=== PATIENT | female | born 1935 | race Caucasian/White ===

== ENCOUNTER 2018-05-25 09:57 | Inpatient (IN) ==
--- NOTE | 2018-05-25 10:47 | XR ---
EXAM DATE: 05/25/2018 10:45 AM EDT AGE/SEX: 82 years / Female INDICATIONS: . Chest pain and short of breath. CLINICAL DATA: This is the patient's initial encounter. Patient reports that signs and symptoms have been present for 2 days and indicates a pain score of 3/10. MEDICAL/SURGICAL HISTORY: None. None. COMPARISON: No prior exams available for comparison. FINDINGS: PA and lateral views of the chest demonstrate small bilateral pleural effusions the right is larger t guerrier the left. There is associated atelectasis. No acute infiltrate. Heart is mildly enlarged. A degen erative thoracic spine. Metallic foreign bodies overlying the right humeral head. CONCLUSION: Cardiomegaly with small bilateral pleural effusions. Electronically signed by: Jan Her MD 05/25/2018 10:46 AM EDT
--- NOTE | 2018-05-25 11:45 | ED ---
HPI General Chief complaint: Chest Pain Stated complaint: Chest pain/SOB Time Seen by Provider: 05/25/18 11:22 History of Present Illness HPI narrative: 82-year-old female with no significant past medical history. She presents for evaluation of chest pain dyspnea. She reports that for 2 weeks she has had substernal sharp chest pain which is worse with deep inspiration. There is associated dyspnea. She denies any nausea, vomiting, abdominal pain, fevers or chills, diaphoresis, lower extremity edema, palpitations, dizziness, lightheadedness. She has never experiencing these symptoms before. She reports a dry cough for the past 3 days. Denies recent travel recent surgery. Denies any history of coronary artery disease. Her primary care physician is Dr. Zelaya. No other complaints. Related Data Home Medications Medication Instructions Recorded Confirmed No Known Home Medications 05/25/18 05/25/18 Allergies Allergy/AdvReac Type Severity Reaction Status Date / Time No Known Allergies Allergy Unverified 05/25/18 11:20 Review of Systems Except as stated in HPI: all other systems reviewed are negative [facility] Medical History Medical History FH: cholecystectomy (Acute) H/O: hysterectomy (Acute) History of intestine removal (Acute) Metal foreign body in upper extremity (Acute) Surgical History Surgical History Hx of appendectomy (Acute) Social History Social History Substance History: No History of Abuse Second Hand Smoke Exposure: No Smoking Status: Never smoker How Often Do You Have a Drink Containing Alcohol: Never Recent Travel in [facility] within the Last 8 Weeks: No Recent Out of Country Travel within the Last 8 Weeks: No Immunization History Tetanus Immunization: >5 Years Hx Influenza Vaccine This Season: No Exam Narrative Exam Narrative: GENERAL: Pleasant well-developed well-nourished female no acute distress. Her heart rate is noted be 117 during examination. SKIN: Warm and dry. HEAD: Atraumatic. Normocephalic. EYES: Pupils equal and round. No scleral icterus. No injection or drainage. ENT: No nasal bleeding or discharge. Mucous membranes pink and moist. NECK: Trachea midline. No JVD. CARDIOVASCULAR: Irregular rate and rhythm. No murmur appreciated. RESPIRATORY: No accessory muscle use. Clear to auscultation. Breath sounds equal bilaterally. GASTROINTESTINAL: Abdomen soft, non-tender, nondistended. Hepatic and splenic margins not palpable. MUSCULOSKELETAL: No obvious deformities. No clubbing. No cyanosis. No edema. NEUROLOGICAL: Awake and alert. No obvious cranial nerve deficits. Motor grossly within normal limits. Normal speech. Course Initial Documented Vital Signs Temperature 98.4 F 05/25/18 10:13 Pulse Rate 118 H 05/25/18 10:13 Respiratory Rate 22 05/25/18 10:13 Blood Pressure 150/69 H 05/25/18 10:13 Pulse Oximetry 95 05/25/18 10:13 Last Documented Vital Signs Temperature 98.4 F 05/25/18 10:13 Pulse Rate 90 05/25/18 13:40 Respiratory Rate 18 05/25/18 12:15 Blood Pressure 96/60 L 05/25/18 13:40 Pulse Oximetry 96 05/25/18 12:15 Medical Decision Making MDM Narrative Medical decision making narrative: The patient was placed on ECG monitoring pulse oximetry. 12 EKG was obtained revealing atrial fibrillation with RVR, rate of 114. She has no history of atrial fibrillation. Lab work, chest x-ray has been ordered. The patient was given a full dose aspirin. Diltiazem and back order, IV metoprolol administered. Upon reexamination her pulse is improved, rate is currently 89. Lab work has been reviewed. CT pulmonary angiogram is negative for PE, there are bilateral pleural effusions as well as a small pericardial effusion. The patient has been comfortable during her ED course. The patient will be admitted for further treatment. Differential Diagnosis Differential Diagnosis: Acute coronary syndrome, pneumothorax, hemothorax, pulmonary embolism, pericarditis, myocarditis, aortic dissection Lab Data Result diagrams: 05/25/18 11:45 05/25/18 11:45 Lab Results 05/25/18 05/25/18 05/25/18 Range/Units 11:45 11:45 11:45 WBC 14.2 H (4.0-11.0) th/mm3 RBC 4.37 (4.00-5.30) mil/mm3 Hgb 13.0 (11.6-15.3) gm/dL Hct 38.5 (35.0-46.0) % MCV 88.2 (80.0-100.0) fL MCH 29.8 (27.0-34.0) pg MCHC 33.8 (32.0-36.0) % RDW 13.6 (11.6-17.2) % Plt Count 371 (150-450) th/mm3 MPV 7.8 (7.0-11.0) fL Neut % (Auto) 77.6 H (16.0-70.0) % Lymph % (Auto) 10.6 (9.0-44.0) % [place] % (Auto) 8.8 H (0.0-8.0) % Eos % (Auto) 2.5 (0.0-4.0) % Baso % (Auto) 0.5 (0.0-2.0) % Neut # (Auto) 11.0 H (1.8-7.7) th/mm3 Lymph # (Auto) 1.5 (1.0-4.8) th/mm3 [place] # (Auto) 1.3 H (0.0-0.9) th/mm3 Eos # (Auto) 0.4 (0.0-0.4) th/mm3 Baso # (Auto) 0.1 (0.0-0.2) th/mm3 WBC Differential . Differential Comment Auto diff final PT 11.4 (9.8-11.6) sec INR 1.1 Ratio APTT 28.7 (24.3-30.1) sec Sodium 138 (136-145) meq/L Potassium 3.5 (3.5-5.1) meq/L Chloride 101 (98-107) meq/L Carbon Dioxide 28.4 (21.0-32.0) meq/L Anion Gap 9 (5-15) meq/L BUN 13 (7-18) mg/dL Creatinine 0.71 (0.50-1.00) mg/dL Estimated GFR 79 L (>89) mL/min Random Glucose 107 H (74-106) mg/dL Calcium 8.6 (8.5-10.1) mg/dL Magnesium (1.5-2.5) mg/dL Total Creatine Kinase 106 (26-192) U/L CK-MB (CK-2) 2.0 (0.5-3.6) ng/mL Troponin I Less than 0.02 L (0.02-0.05) ng/mL B-Natriuretic Peptide (0-100) pg/mL TSH (0.358-3.740) uIU/mL 05/25/18 05/25/18 Range/Units 11:45 11:45 WBC (4.0-11.0) th/mm3 RBC (4.00-5.30) mil/mm3 Hgb (11.6-15.3) gm/dL Hct (35.0-46.0) % MCV (80.0-100.0) fL MCH (27.0-34.0) pg MCHC (32.0-36.0) % RDW (11.6-17.2) % Plt Count (150-450) th/mm3 MPV (7.0-11.0) fL Neut % (Auto) (16.0-70.0) % Lymph % (Auto) (9.0-44.0) % [place] % (Auto) (0.0-8.0) % Eos % (Auto) (0.0-4.0) % Baso % (Auto) (0.0-2.0) % Neut # (Auto) (1.8-7.7) th/mm3 Lymph # (Auto) (1.0-4.8) th/mm3 [place] # (Auto) (0.0-0.9) th/mm3 Eos # (Auto) (0.0-0.4) th/mm3 Baso # (Auto) (0.0-0.2) th/mm3 WBC Differential Differential Comment PT (9.8-11.6) sec INR Ratio APTT (24.3-30.1) sec Sodium (136-145) meq/L Potassium (3.5-5.1) meq/L Chloride (98-107) meq/L Carbon Dioxide (21.0-32.0) meq/L Anion Gap (5-15) meq/L BUN (7-18) mg/dL Creatinine (0.50-1.00) mg/dL Estimated GFR (>89) mL/min Random Glucose (74-106) mg/dL Calcium (8.5-10.1) mg/dL Magnesium 2.1 (1.5-2.5) mg/dL Total Creatine Kinase (26-192) U/L CK-MB (CK-2) (0.5-3.6) ng/mL Troponin I (0.02-0.05) ng/mL B-Natriuretic Peptide 390 H (0-100) pg/mL TSH 2.540 (0.358-3.740) uIU/mL Imaging Data Radiologist's impression: Chest X-Ray 05/25/18 10:17 CONCLUSION: Cardiomegaly with small bilateral pleural effusions. Chest CTA 05/25/18 12:26 CONCLUSION: 1. Negative for pulmonary embolus. 2. Bilateral moderate size pleural effusions with compressive atelectasis. Small pericardial effusion. 3. Mild coronary calcifications. Discharge Plan Discharge Disposition Patient Disposition: 30 Still Patient Discharge Condition Condition: Stable Discharge Details Diagnosis: Atrial fibrillation with RVR, Pleural effusion, bilateral, Pericardial effusion Physicians Team ED Provider: Jayne Andino ED Midlevel Provider: Newton Maddox Primary Care Provider: Addi Zelaya Attending Provider: Ke Arnold Status ED Status: Admitted Patient
[2018-05-25] MEDS ORDERED: Metoprolol Inj 5 MG/5 ML Vial IV.PUSH PRN (11:52)
[2018-05-25 12:01] LABS: Baso # (Auto) 0.1 th/mm3 (0.0-0.2); Baso % (Auto) 0.5 % (0.0-2.0); Eos # (Auto) 0.4 th/mm3 (0.0-0.4); Eos % (Auto) 2.5 % (0.0-4.0); Hematocrit 38.5 % (35.0-46.0); Lymph # (Auto) 1.5 th/mm3 (1.0-4.8); Lymph % (Auto) 10.6 % (9.0-44.0); Mean Corpuscular HGB Conc 33.8 % (32.0-36.0); Mean Corpuscular Hemoglobin 29.8 pg (27.0-34.0); Mean Corpuscular Volume 88.2 fL (80.0-100.0); Mean Platelet Volume 7.8 fL (7.0-11.0); Mono # (Auto) 1.3 th/mm3 (0.0-0.9); Mono % (Auto) 8.8 % (0.0-8.0); Neut % (Auto) 77.6 % (16.0-70.0); Platelet Count 371 th/mm3 (150-450); Red Blood Count 4.37 mil/mm3 (4.00-5.30); Red Cell Distribution Width 13.6 % (11.6-17.2); White Blood Count 14.2 th/mm3 (4.0-11.0)
[2018-05-25 12:17] LABS: Activated Partial Thrombo Time 28.7 sec (24.3-30.1); INR 1.1 Ratio; Prothrombin Time 11.4 sec (9.8-11.6)
[2018-05-25 12:18] LABS: Anion Gap 9 meq/L (5-15); Blood Urea Nitrogen 13 mg/dL (7-18); Calcium 8.6 mg/dL (8.5-10.1); Carbon Dioxide 28.4 meq/L (21.0-32.0); Chloride 101 meq/L (98-107); Glomerular Filtration Rate 79 mL/min (>89); Glucose,Random 107 mg/dL (74-106); Potassium 3.5 meq/L (3.5-5.1); Sodium 138 meq/L (136-145)
[2018-05-25 12:22] LABS: Creatine Kinase 106 U/L (26-192)
[2018-05-25 12:54] LABS: Magnesium 2.1 mg/dL (1.5-2.5)
[2018-05-25 13:03] LABS: Thyroid Stimulating Hormone 2.54 uIU/mL (0.358-3.740)
--- NOTE | 2018-05-25 15:34 | CT ---
EXAM DATE: 05/25/2018 3:15 PM EDT AGE/SEX: 82 years / Female INDICATIONS: Chest pain. CLINICAL DATA: This is the patient's initial encounter. Patient reports that signs and symptoms have been present for 1 day and indicates a pain score of 7/10. MEDICAL/SURGICAL HISTORY: None. Cholecystectomy. Hysterectomy. Colon resection. RADIATION DOSE: 10.67 CTDI (mGy) COMPARISON: No prior exams available for comparison. TECHNIQUE: Volumetric scanning was performed using a multi-row detector CT scanner during bolus infu efrem of 50 ml Omnipaque 350 (iohexol) nonionic water-soluble contrast as a single exam dose. The pao a was post processed with a variety of visualization algorithms including full volume maximum intensi ty projection and sliding thin slab reformation. Using automated exposure control and adjustment of the mA and/or kV according to patient size, radiation dose was kept as low as reasonably achievable t o obtain optimal diagnostic quality images. DICOM format image data is available electronically for review and comparison. FINDINGS: No filling defects identified to suggest pulmonary embolic disease. Bilateral pleural effusions, righ t greater than left with compressive atelectasis at both lung bases. No pneumothorax. Small pericardi al effusion. No acute findings in the upper abdomen. Mildly enlarged right pretracheal lymph node christie suring about 1.4 cm. Mild coronary calcifications. CONCLUSION: 1. Negative for pulmonary embolus. 2. Bilateral moderate size pleural effusions with compressive atelectasis. Small pericardial effusio n. 3. Mild coronary calcifications. Electronically signed by: Destin Kirby MD 05/25/2018 3:33 PM EDT
--- NOTE | 2018-05-25 16:52 | P.HP ---
<Anitha Thorne - Last Filed: 05/25/18 17:45> History of Present Illness Primary Care Physician: Addi Zelaya MD Chief Complaint: Chest pain and shortness of breath History of Present Illness: This is an 82-year-old female patient who denies prior medical history. Patient presents for evaluation of chest pain dyspnea. She reports that for 2 weeks she has had substernal sharp chest pain which is worse with deep inspiration. There is associated dyspnea. She denies any nausea, vomiting, abdominal pain, fevers or chills, diaphoresis, lower extremity edema, palpitations, dizziness, lightheadedness. She has never experiencing these symptoms before. She reports a dry cough for the past 3 days. Denies recent travel recent surgery. Denies any history of coronary artery disease. Her primary care physician is Dr. Zelaya. No other complaints. PMH: Patient denies PSxH: Appendectomy, cataract surgery, cholecystectomy, colon surgery, colonoscopy, G EGD, foot surgery, nasal endoscopy, septoplasty, total abdominal hysterectomy with cervix removed, Total knee arthroplasty, Varicose vein ligation FMH: CVA, diabetes mellitus, ovarian cancer, bone cancer, colon cancer Social history: Patient is , Retired Never smoked Rare EtOH use Denies illicit drug use - Diagnosis (1) Atrial fibrillation with RVR (2) Pleural effusion, bilateral (3) Pericardial effusion Inpatient Certification: I certify that the inpatient services were ordered in accordance with Medicare regulations governing the order. This includes certification that hospital inpatient services are reasonable and necessary and in the case of services not specified as inpatient-only under 42 CFR 419.22(n), that they are appropriately provided as inpatient services in accordance to with the 2-midnight benchmark under 43 CFR 412.3(e) Review of Systems All other systems reviewed negative except as stated in HPI PMFSH - History History Provided By: Patient - Medical History Medical History: Medical History (Last Updated 05/25/18 @ 11:19 by Jigna Malloy) FH: cholecystectomy H/O: hysterectomy History of intestine removal Metal foreign body in upper extremity - Surgical History Surgical History: Surgical History (Last Updated 05/25/18 @ 11:19 by Jigna Malloy) Hx of appendectomy - Tobacco History Second Hand Smoke Exposure: No Smoking Status: Never smoker - Alcohol History How Often Do You Have a Drink Containing Alcohol: Never - Substance Use History Substance History: No History of Abuse - Travel History Recent Travel in the [place] Within the Last 8 Weeks: No Recent Travel Out of the Country Within the Last 8 Weeks: No - Immunization History Tetanus Immunization: >5 Years Hx Influenza Vaccine This Season: No Medications and Allergies Allergies Allergy/AdvReac Type Severity Reaction Status Date / Time No Known Allergies Allergy Unverified 05/25/18 11:20 Home Medications Medication Instructions Recorded Confirmed Type No Known Home Medications 05/25/18 05/25/18 History Active Medications: Active Medications Metoprolol Tartrate (Lopressor Inj) 5 mg IV.PUSH Q5M PRN PRN Reason: RAPID HEART RATE Last Admin: 05/25/18 11:57 Dose: 5 mg Sodium Chloride (Ns Flush) 2 ml IV.FLUSH UNSCH PRN PRN Reason: FLUSH AFTER USING IV ACCESS Exam Vital signs: Vital Signs 05/25/18 10:13 05/25/18 11:25 05/25/18 12:15 Temperature 98.4 F Pulse Rate 118 H 109 H 89 Respiratory Rate 18 Blood Pressure 150/69 H 135/83 117/61 Pulse Oximetry 95 95 96 05/25/18 13:40 Temperature Pulse Rate 90 Respiratory Rate Blood Pressure 96/60 L Pulse Oximetry Intake & Output 05/24/18 05/25/18 05/25/18 18:59 06:59 18:59 Weight 83.915 kg Narrative: GENERAL: This is a well-nourished, well-developed patient, in no apparent distress. CARDIOVASCULAR: Regular rate and rhythm RESPIRATORY: diminished bilateral bases GASTROINTESTINAL: Abdomen soft, non-tender, nondistended. Normal active bowel sounds MUSCULOSKELETAL: Extremities without clubbing, cyanosis, or edema. NEURO: Alert & Oriented x4 to person, place, time, situation. Moves all ext x4 Results - Labs CBC & Chem 7: 05/25/18 11:45 05/25/18 11:45 Labs: Laboratory Results - last 24 hr 05/25/18 05/25/18 05/25/18 11:45 11:45 11:45 WBC 14.2 H RBC 4.37 Hgb 13.0 Hct 38.5 MCV 88.2 MCH 29.8 MCHC 33.8 RDW 13.6 Plt Count 371 MPV 7.8 Neut % (Auto) 77.6 H Lymph % (Auto) 10.6 [place] % (Auto) 8.8 H Eos % (Auto) 2.5 Baso % (Auto) 0.5 Neut # (Auto) 11.0 H Lymph # (Auto) 1.5 [facility] # (Auto) 1.3 H Eos # (Auto) 0.4 Baso # (Auto) 0.1 WBC Differential . Differential Comment Auto diff final PT 11.4 INR 1.1 APTT 28.7 Sodium 138 Potassium 3.5 Chloride 101 Carbon Dioxide 28.4 Anion Gap 9 BUN 13 Creatinine 0.71 Estimated GFR 79 L Random Glucose 107 H Calcium 8.6 Magnesium Total Creatine Kinase 106 CK-MB (CK-2) 2.0 Troponin I Less than 0.02 L B-Natriuretic Peptide TSH 05/25/18 05/25/18 11:45 11:45 WBC RBC Hgb Hct MCV MCH MCHC RDW Plt Count MPV Neut % (Auto) Lymph % (Auto) [facility] % (Auto) Eos % (Auto) Baso % (Auto) Neut # (Auto) Lymph # (Auto) [facility] # (Auto) Eos # (Auto) Baso # (Auto) WBC Differential Differential Comment PT INR APTT Sodium Potassium Chloride Carbon Dioxide Anion Gap BUN Creatinine Estimated GFR Random Glucose Calcium Magnesium 2.1 Total Creatine Kinase CK-MB (CK-2) Troponin I B-Natriuretic Peptide 390 H TSH 2.540 - Imaging Impressions Chest X-Ray 05/25/18 10:17 CONCLUSION: Cardiomegaly with small bilateral pleural effusions. Chest CTA 05/25/18 12:26 CONCLUSION: 1. Negative for pulmonary embolus. 2. Bilateral moderate size pleural effusions with compressive atelectasis. Small pericardial effusion. 3. Mild coronary calcifications. Caprini VTE Risk Assessment Caprini VTE Risk Assessment: Moderate/High Risk (score >= 2) Caprini Risk Assessment Model: Point Value = 1 Point Value = 2 Point Value = 3 Point Value = 5 Age 41-60 Minor surgery BMI > 25 kg/m2 Swollen legs Varicose veins or History of unexplained or recurrent spontaneous Oral contraceptives or hormone replacement Sepsis (< 1 month) Serious lung disease, including pneumonia (< 1 month) Abnormal pulmonary function Acute myocardial infarction Congestive heart failure (< 1 month) History of inflammatory bowel disease Medical patient at bed rest Age 61-74 Arthroscopic surgery Major open surgery (> 45 min) Laparoscopic surgery (> 45 min) Malignancy Confined to bed (> 72 hours) Immobilizing plaster cast Central venous access Age >= 75 History of VTE Family history of VTE Factor V Leiden Prothrombin [id number] Lupus anticoagulant Anticardiolipin antibodies Elevated serum homocysteine Heparin-induced thrombocytopenia Other congenital or acquired thrombophilia Stroke (< 1 month) Elective arthroplasty Hip, pelvis, or leg fracture Acute spinal cord injury (< 1 month) Prophylaxis Regimen: Total Risk Factor Score Risk Level Prophylaxis Regimen 0-1 Low Early ambulation 2 Moderate Order ONE of the following: *Sequential Compression Device (SCD) *Heparin 5000 units SQ BID 3-4 Higher Order ONE of the following medications: *Heparin 5000 units SQ TID *Enoxaparin/Lovenox 40 mg SQ daily (WT < 150 kg, CrCl > 30 mL/min) *Enoxaparin/Lovenox 30 mg SQ daily (WT < 150 kg, CrCl > 10-29 mL/min) *Enoxaparin/Lovenox 30 mg SQ BID (WT < 150 kg, CrCl > 30 mL/min) AND/OR *Sequential Compression Device (SCD) 5 or more Highest Order ONE of the following medications: *Heparin 5000 units SQ TID (Preferred with Epidurals) *Enoxaparin/Lovenox 40 mg SQ daily (WT < 150 kg, CrCl > 30 mL/min) *Enoxaparin/Lovenox 30 mg SQ daily (WT < 150 kg, CrCl > 10-29 mL/min) *Enoxaparin/Lovenox 30 mg SQ BID (WT < 150 kg, CrCl > 30 mL/min) AND *Sequential Compression Device (SCD) Assessment and Plan - Assessment (1) Atrial fibrillation with RVR Code(s): I48.91 - Unspecified atrial fibrillation Status: Acute Plan: A. fib RVR Initial EKG reviewed and reveals: Atrial fibrillation RVR rate 114 bpm Patient received IV metoprolol and Cardizem IV in the emergency department heart rate decreased and converted to NSR will start metoprolol 25 mg PO BID discussed the options regarding anticoagulation, patient wished to think about options regarding blood thinner will hold off on blood thinner at this time as patient may require thoracentesis Continuous telemetry monitoring Serial EKG and troponin 2D echocardiogram TSH 2.45 Bilateral pleural effusions Small pericardial effusion likely secondary to A Fib RVR Chest X-Ray 08/06/18 10:17 CONCLUSION: Cardiomegaly with small bilateral pleural effusions. Chest CTA 05/25/18 12:26 CONCLUSION: 1. Negative for pulmonary embolus. 2. Bilateral moderate size pleural effusions with compressive atelectasis. Small pericardial effusion. 3. Mild coronary calcifications. Start Lasix 20 mg IV daily with potassium 2D echocardiogram pending Supplemental oxygen as needed Continuous telemetry monitoring monitor patient's SOB consider thoracentesis if patient's SOB continues repeat CXR in AM DVT prophylaxis with SCDs (2) Pleural effusion, bilateral Code(s): J90 - Pleural effusion, not elsewhere classified Status: Acute (3) Pericardial effusion Code(s): I31.3 - Pericardial effusion (noninflammatory) Status: Acute <Ke Arnold - Last Filed: 05/25/18 18:47> History of Present Illness Primary Care Physician: Addi Zelaya MD History of Present Illness: The exam, history, and the medical decision-making described in the above note were completed with the assistance of the mid-level provider. I reviewed and agree with the findings presented. I attest that I had a [id number] encounter with the patient on the same day, and personally performed and documented my assessment and findings in the medical record. Pt admitted with afib/rvr and sob. noted to have bilateral pleural effusion probably from her afib. echo to eval LVF and anatomy. given 1 dose iv lopressor in ED with conversion to nsr. discussed rate control and anticoagulation at length with pt and family and her chadvasc score. Will give one dose lasix and reevaluate for sob in AM before deciding on ?thoracentesis. Pt eval. metoprolol started. echo pending. tsh checked. - Diagnosis (1) Atrial fibrillation with RVR (2) Pleural effusion, bilateral (3) Pericardial effusion Inpatient Certification: I certify that the inpatient services were ordered in accordance with Medicare regulations governing the order. This includes certification that hospital inpatient services are reasonable and necessary and in the case of services not specified as inpatient-only under 42 CFR 419.22(n), that they are appropriately provided as inpatient services in accordance to with the 2-midnight benchmark under 43 CFR 412.3(e) [facility] - Medical History Medical History: Medical History (Last Updated 05/25/18 @ 11:19 by Jigna Malloy) FH: cholecystectomy H/O: hysterectomy History of intestine removal Metal foreign body in upper extremity - Surgical History Surgical History: Surgical History (Last Updated 05/25/18 @ 11:19 by Jigna Malloy) Hx of appendectomy Medications and Allergies Active Medications: Active Medications Al Hydroxide/Mg Hydroxide (Milk Of Magnbhavesh Liq) 30 ml PO Q12H PRN PRN Reason: Mild Constipation Furosemide (Lasix) 20 mg PO DAILY BREA Last Admin: 05/25/18 18:34 Dose: 20 mg Metoprolol Tartrate (Lopressor Inj) 5 mg IV.PUSH Q5M PRN PRN Reason: RAPID HEART RATE Last Admin: 05/25/18 11:57 Dose: 5 mg Metoprolol Tartrate (Lopressor) 25 mg PO BID [facility] Potassium Chloride (Klor-Con 10) 10 meq PO DAILY [facility] Senna/Docusate Sodium (Little-Colace) 1 tab PO BID BREA Sodium Chloride (Ns Flush) 2 ml IV.FLUSH UNSCH PRN PRN Reason: FLUSH AFTER USING IV ACCESS Exam Vital signs: Vital Signs 05/25/18 10:13 05/25/18 11:25 05/25/18 12:15 Temperature 98.4 F Pulse Rate 118 H 109 H 89 Respiratory Rate 22 18 18 Blood Pressure 150/69 H 135/83 117/61 Pulse Oximetry 95 95 96 05/25/18 13:40 05/25/18 16:56 Temperature Pulse Rate 90 89 Respiratory Rate 16 Blood Pressure 96/60 L 136/79 Pulse Oximetry 96 Intake & Output 05/24/18 05/25/18 05/25/18 18:59 06:59 18:59 Weight 83.915 kg Results - Labs CBC & Chem 7: 05/25/18 11:45 05/25/18 11:45 Labs: Laboratory Results - last 24 hr 05/25/18 05/25/18 05/25/18 11:45 11:45 11:45 WBC 14.2 H RBC 4.37 Hgb 13.0 Hct 38.5 MCV 88.2 MCH 29.8 MCHC 33.8 RDW 13.6 Plt Count 371 MPV 7.8 Neut % (Auto) 77.6 H Lymph % (Auto) 10.6 [facility] % (Auto) 8.8 H Eos % (Auto) 2.5 Baso % (Auto) 0.5 Neut # (Auto) 11.0 H Lymph # (Auto) 1.5 [facility] # (Auto) 1.3 H Eos # (Auto) 0.4 Baso # (Auto) 0.1 WBC Differential . Differential Comment Auto diff final PT 11.4 INR 1.1 APTT 28.7 Sodium 138 Potassium 3.5 Chloride 101 Carbon Dioxide 28.4 Anion Gap 9 BUN 13 Creatinine 0.71 Estimated GFR 79 L Random Glucose 107 H Calcium 8.6 Magnesium Total Creatine Kinase 106 CK-MB (CK-2) 2.0 Troponin I Less than 0.02 L B-Natriuretic Peptide TSH 05/25/18 05/25/18 11:45 11:45 WBC RBC Hgb Hct MCV MCH MCHC RDW Plt Count MPV Neut % (Auto) Lymph % (Auto) [facility] % (Auto) Eos % (Auto) Baso % (Auto) Neut # (Auto) Lymph # (Auto) [facility] # (Auto) Eos # (Auto) Baso # (Auto) WBC Differential Differential Comment PT INR APTT Sodium Potassium Chloride Carbon Dioxide Anion Gap BUN Creatinine Estimated GFR Random Glucose Calcium Magnesium 2.1 Total Creatine Kinase CK-MB (CK-2) Troponin I B-Natriuretic Peptide 390 H TSH 2.540 - Imaging Impressions Chest X-Ray 05/25/18 10:17 CONCLUSION: Cardiomegaly with small bilateral pleural effusions. Chest CTA 05/25/18 12:26 CONCLUSION: 1. Negative for pulmonary embolus. 2. Bilateral moderate size pleural effusions with compressive atelectasis. Small pericardial effusion. 3. Mild coronary calcifications. Chest X-Ray 05/25/18 17:46 CONCLUSION: Increasing right pleural effusion and basilar atelectasis. Stable vascular stents. Caprini VTE Risk Assessment Caprini Risk Assessment Model: Point Value = 1 Point Value = 2 Point Value = 3 Point Value = 5 Age 41-60 Minor surgery BMI > 25 kg/m2 Swollen legs Varicose veins or History of unexplained or recurrent spontaneous Oral contraceptives or hormone replacement Sepsis (< 1 month) Serious lung disease, including pneumonia (< 1 month) Abnormal pulmonary function Acute myocardial infarction Congestive heart failure (< 1 month) History of inflammatory bowel disease Medical patient at bed rest Age 61-74 Arthroscopic surgery Major open surgery (> 45 min) Laparoscopic surgery (> 45 min) Malignancy Confined to bed (> 72 hours) Immobilizing plaster cast Central venous access Age >= 75 History of VTE Family history of VTE Factor V Leiden Prothrombin [id number] Lupus anticoagulant Anticardiolipin antibodies Elevated serum homocysteine Heparin-induced thrombocytopenia Other congenital or acquired thrombophilia Stroke (< 1 month) Elective arthroplasty Hip, pelvis, or leg fracture Acute spinal cord injury (< 1 month) Prophylaxis Regimen: Total Risk Factor Score Risk Level Prophylaxis Regimen 0-1 Low Early ambulation 2 Moderate Order ONE of the following: *Sequential Compression Device (SCD) *Heparin 5000 units SQ BID 3-4 Higher Order ONE of the following medications: *Heparin 5000 units SQ TID *Enoxaparin/Lovenox 40 mg SQ daily (WT < 150 kg, CrCl > 30 mL/min) *Enoxaparin/Lovenox 30 mg SQ daily (WT < 150 kg, CrCl > 10-29 mL/min) *Enoxaparin/Lovenox 30 mg SQ BID (WT < 150 kg, CrCl > 30 mL/min) AND/OR *Sequential Compression Device (SCD) 5 or more Highest Order ONE of the following medications: *Heparin 5000 units SQ TID (Preferred with Epidurals) *Enoxaparin/Lovenox 40 mg SQ daily (WT < 150 kg, CrCl > 30 mL/min) *Enoxaparin/Lovenox 30 mg SQ daily (WT < 150 kg, CrCl > 10-29 mL/min) *Enoxaparin/Lovenox 30 mg SQ BID (WT < 150 kg, CrCl > 30 mL/min) AND *Sequential Compression Device (SCD) Assessment and Plan - Assessment (1) Atrial fibrillation with RVR Code(s): I48.91 - Unspecified atrial fibrillation Status: Acute (2) Pleural effusion, bilateral Code(s): J90 - Pleural effusion, not elsewhere classified Status: Acute (3) Pericardial effusion Code(s): I31.3 - Pericardial effusion (noninflammatory) Status: Acute
--- NOTE | 2018-05-25 18:23 | XR ---
EXAM DATE: 05/25/2018 6:06 PM EDT AGE/SEX: 82 years / Female INDICATIONS: Chest pain CLINICAL DATA: This is the patient's initial encounter. Patient reports that signs and symptoms have been present for 1 day and indicates a pain score of 2/10. MEDICAL/SURGICAL HISTORY: . A-fib None. COMPARISON: C, CHEST 2V PA&LAT, 05/25/2018. . FINDINGS: There is persistent opacity in the lower lungs bilaterally with meniscal interface on the right side and some air bronchograms, characteristic of bilateral pleural effusions and associated atelectasis. The severity of findings is similar on the left side and slightly progressed on the right side. The h eart is mildly enlarged, stable. Metallic densities project over the right shoulder. CONCLUSION: Increasing right pleural effusion and basilar atelectasis. Stable vascular stents. Electronically signed by: Jan Mota MD 05/25/2018 6:22 PM EDT
[2018-05-25] MEDS: Furosemide 20 MG Tablet PO SCH (18:34)
[2018-05-25] MEDS: Senna/Docusate Sodium 8.6/50 MG Tablet PO SCH (20:25)
[2018-05-25] MEDS ORDERED: Metoprolol Tartrate 25 MG Tablet PO SCH (21:00)
--- NOTE | 2018-05-26 03:59 | XR ---
EXAM DATE: 05/26/2018 3:27 AM EDT AGE/SEX: 82 years / Female INDICATIONS: Short of breath. CLINICAL DATA: This is the patient's subsequent encounter. Patient reports that signs and symptoms h ave been present for 1 week and indicates a pain score of 0/10. MEDICAL/SURGICAL HISTORY: . A-fib. None. COMPARISON: [facility] [place], CHEST 1V SINGLE AP, 05/25/2018. . FINDINGS: There are small bilateral effusions, cardiomegaly and basilar atelectasis again noted. CONCLUSION: Stable appearance of the chest. Electronically signed by: Andre Lee MD 05/26/2018 3:57 AM EDT
[2018-05-26 04:26] LABS: Baso # (Auto) 0.1 th/mm3 (0.0-0.2); Baso % (Auto) 0.6 % (0.0-2.0); Eos # (Auto) 0.4 th/mm3 (0.0-0.4); Eos % (Auto) 3.5 % (0.0-4.0); Hematocrit 35.4 % (35.0-46.0); Hemoglobin 11.9 gm/dL (11.6-15.3); Lymph # (Auto) 1.4 th/mm3 (1.0-4.8); Lymph % (Auto) 12.6 % (9.0-44.0); Mean Corpuscular HGB Conc 33.8 % (32.0-36.0); Mean Corpuscular Hemoglobin 29.4 pg (27.0-34.0); Mean Corpuscular Volume 86.9 fL (80.0-100.0); Mean Platelet Volume 7.6 fL (7.0-11.0); Mono % (Auto) 8.6 % (0.0-8.0); Neut # (Auto) 8.6 th/mm3 (1.8-7.7); Neut % (Auto) 74.7 % (16.0-70.0); Platelet Count 349 th/mm3 (150-450); Red Blood Count 4.07 mil/mm3 (4.00-5.30); White Blood Count 11.5 th/mm3 (4.0-11.0)
[2018-05-26 04:48] LABS: Anion Gap 7 meq/L (5-15); Blood Urea Nitrogen 10 mg/dL (7-18); Calcium 8.2 mg/dL (8.5-10.1); Carbon Dioxide 31.4 meq/L (21.0-32.0); Chloride 103 meq/L (98-107); Glomerular Filtration Rate Greater Than 89 mL/min (>89); Glucose,Random 97 mg/dL (74-106); Potassium 3.4 meq/L (3.5-5.1); Sodium 141 meq/L (136-145)
--- NOTE | 2018-05-26 07:32 | ECG ---
Date Performed: 05/25/2018 Time Performed: 10:21:36 PTAGE: 82 years EKG: ATRIAL FIBRILLATION WITH RAPID VENTRICULAR RESPONSE MARKED LEFT AXIS DEVIATION RIGHT BUNDLE BRANCH BLOCK ABNORMAL ECG PREVIOUS TRACING : 08/04/2008 13.40 DOCTOR: Rocky Campos Interpretating Date/Time 05/26/2018 07:29:56
[2018-05-26] MEDS: Metoprolol Tartrate 50 MG Tablet PO SCH ×2 (08:32→20:11)
[2018-05-26] MEDS: Senna/Docusate Sodium 8.6/50 MG Tablet PO SCH ×2 (08:32→20:11)
[2018-05-26] MEDS: Furosemide 20 MG Tablet PO SCH (08:32)
--- NOTE | 2018-05-26 09:59 | P.PNIM ---
Subjective Interval history: denies palpitation or cp. slept well. Physical Exam Vital signs: Vital Signs 05/25/18 10:13 05/25/18 11:25 05/25/18 12:15 Temperature 98.4 F Pulse Rate 118 H 109 H 89 Respiratory Rate 22 18 18 Blood Pressure 150/69 H 135/83 117/61 Pulse Oximetry 95 95 96 05/25/18 13:40 05/25/18 16:56 05/25/18 19:00 Temperature Pulse Rate 90 89 95 H Respiratory Rate 16 Blood Pressure 96/60 L 136/79 Pulse Oximetry 96 05/25/18 20:00 05/25/18 23:00 05/26/18 00:00 Temperature 99.2 F Pulse Rate 92 H 82 84 Respiratory Rate 18 18 Blood Pressure 133/61 145/63 H Pulse Oximetry 95 92 L 05/26/18 03:00 05/26/18 04:00 05/26/18 05:00 Temperature 98.7 F Pulse Rate 76 79 80 Respiratory Rate 18 Blood Pressure 133/67 Pulse Oximetry 94 L 05/26/18 06:13 05/26/18 07:00 05/26/18 07:15 Temperature 97.8 F Pulse Rate 92 H 99 H 100 H Respiratory Rate 16 Blood Pressure 121/67 Pulse Oximetry 95 05/26/18 08:00 05/26/18 09:00 05/26/18 09:01 Temperature Pulse Rate 121 H 101 H Respiratory Rate Blood Pressure Pulse Oximetry 95 94 L Intake & Output 05/25/18 05/26/18 05/26/18 18:59 06:59 18:59 Intake Total 240 / 240 Output Total 600 / 600 Balance -360 / -360 Weight 83.915 kg 84.5 kg Intake: Oral 240 / 240 Output: Urine 600 / 600 Other: # Voids 2 Date of Last Bowel Movement 05/25/18 05/26/18 # Bowel Movements 1 heart irreg lung diminished bases abd s/nt ext no edema Results - Labs CBC & Chem 7: 05/26/18 03:55 05/26/18 03:55 Laboratory Results - last 24 hr 05/25/18 05/25/18 05/25/18 11:45 11:45 11:45 WBC 14.2 H RBC 4.37 Hgb 13.0 Hct 38.5 MCV 88.2 MCH 29.8 MCHC 33.8 RDW 13.6 Plt Count 371 MPV 7.8 Neut % (Auto) 77.6 H Lymph % (Auto) 10.6 [place] % (Auto) 8.8 H Eos % (Auto) 2.5 Baso % (Auto) 0.5 Neut # (Auto) 11.0 H Lymph # (Auto) 1.5 [place] # (Auto) 1.3 H Eos # (Auto) 0.4 Baso # (Auto) 0.1 WBC Differential . Differential Comment Auto diff final PT 11.4 INR 1.1 APTT 28.7 Sodium 138 Potassium 3.5 Chloride 101 Carbon Dioxide 28.4 Anion Gap 9 BUN 13 Creatinine 0.71 Estimated GFR 79 L Random Glucose 107 H Calcium 8.6 Magnesium Total Creatine Kinase 106 CK-MB (CK-2) 2.0 Troponin I Less than 0.02 L B-Natriuretic Peptide TSH 05/25/18 05/25/18 05/25/18 11:45 11:45 21:43 WBC RBC Hgb Hct MCV MCH MCHC RDW Plt Count MPV Neut % (Auto) Lymph % (Auto) [place] % (Auto) Eos % (Auto) Baso % (Auto) Neut # (Auto) Lymph # (Auto) [place] # (Auto) Eos # (Auto) Baso # (Auto) WBC Differential Differential Comment PT INR APTT Sodium Potassium Chloride Carbon Dioxide Anion Gap BUN Creatinine Estimated GFR Random Glucose Calcium Magnesium 2.1 Total Creatine Kinase CK-MB (CK-2) Troponin I Less than 0.02 L B-Natriuretic Peptide 390 H TSH 2.540 05/26/18 05/26/18 03:55 03:55 WBC 11.5 H RBC 4.07 Hgb 11.9 Hct 35.4 MCV 86.9 MCH 29.4 MCHC 33.8 RDW 14.0 Plt Count 349 MPV 7.6 Neut % (Auto) 74.7 H Lymph % (Auto) 12.6 [place] % (Auto) 8.6 H Eos % (Auto) 3.5 Baso % (Auto) 0.6 Neut # (Auto) 8.6 H Lymph # (Auto) 1.4 [place] # (Auto) 1.0 H Eos # (Auto) 0.4 Baso # (Auto) 0.1 WBC Differential . Differential Comment Auto diff final PT INR APTT Sodium 141 Potassium 3.4 L Chloride 103 Carbon Dioxide 31.4 Anion Gap 7 BUN 10 Creatinine 0.59 Estimated GFR Greater than 89 Random Glucose 97 Calcium 8.2 L Magnesium Total Creatine Kinase CK-MB (CK-2) Troponin I Less than 0.02 L B-Natriuretic Peptide TSH - Imaging Impressions Chest X-Ray 05/25/18 10:17 CONCLUSION: Cardiomegaly with small bilateral pleural effusions. Chest CTA 05/25/18 12:26 CONCLUSION: 1. Negative for pulmonary embolus. 2. Bilateral moderate size pleural effusions with compressive atelectasis. Small pericardial effusion. 3. Mild coronary calcifications. Chest X-Ray 05/25/18 17:46 CONCLUSION: Increasing right pleural effusion and basilar atelectasis. Stable vascular stents. Chest X-Ray 05/26/18 06:00 CONCLUSION: Stable appearance of the chest. Assessment and Plan - Assessment (1) Atrial fibrillation with RVR Code(s): I48.91 - Unspecified atrial fibrillation Status: Acute Plan: A. fib RVR new onset afib/rvr. converted in ED but this AM back to afib/rvr tsh nml increase bb to metoprolol 50mg bid plan for eliquis. long discussion with pt she will ambulate to assess hr control and any sob today...if sob with controlled heart rate then will proceed with thoracentesis attempt. echo pending. Bilateral pleural effusions Small pericardial effusion likely secondary to A Fib RVR Chest X-Ray 05/25/18 10:17 CONCLUSION: Cardiomegaly with small bilateral pleural effusions. Chest CTA 05/25/18 12:26 CONCLUSION: 1. Negative for pulmonary embolus. 2. Bilateral moderate size pleural effusions with compressive atelectasis. Small pericardial effusion. 3. Mild coronary calcifications. cont lasix low dose. possible thoracentesis if sob persists after controlled hr. DVT prophylaxis with SCDs (2) Pleural effusion, bilateral Code(s): J90 - Pleural effusion, not elsewhere classified Status: Acute (3) Pericardial effusion Code(s): I31.3 - Pericardial effusion (noninflammatory) Status: Acute
--- NOTE | 2018-05-26 15:42 | ECHRPT ---
Indication: SHORTNESS OF BREATH CONCLUSIONS Normal left ventricular size. Mild concentric left ventricular hypertrophy. The left ventricular systolic function is low normal with an estimated ejection fraction in the rang e of 50- 55%. Mild mitral valve regurgitation. Mild aortic valve regurgitation. There is mild tricuspid valve regurgitation. The estimated pulmonary arterial pressure is 43 mmHg. A right sided pleural effusion is present. BP: / HR: Rhythm: Sinus MEASUREMENTS (Male / Female) Normal Values Technical Quality:Technically difficult study 2D ECHO LV Diastolic Diameter PLAX 3.3 cm 4.2 - 5.9 / 3.9 - 5.3 cm LV Systolic Diameter PLAX 2.5 cm IVS Diastolic Thickness 1.1 cm 0.6 - 1.0 / 0.6 - 0.9 cm LVPW Diastolic Thickness 1.1 cm 0.6 - 1.0 / 0.6 - 0.9 cm LV Relative Wall Thickness 0.6 LVOT Diameter 2.0 cm Aortic Root Diameter 2.7 cm LA Systolic Diameter LX 3.2 cm 3.0 - 4.0 / 2.7 - 3.8 cm M-MODE AV Cusp Separation MM 1.9 cm DOPPLER AV Peak Velocity 116.0 cm/s AV Peak Gradient 5.4 mmHg AV Mean Gradient 3.0 mmHg AV Velocity Time Integral 21.8 cm AI Peak Velocity 328.0 cm/s AI Peak Gradient 43.0 mmHg AI Pressure Half Time 628.0 ms LVOT Peak Velocity 92.5 cm/s LVOT Peak Gradient 3.4 mmHg LVOT Velocity Time Integral 16.0 cm AV Area Cont Eq vti 2.3 cm AV Area Cont Eq pk 2.5 cm Mitral E Point Velocity 81.4 cm/s Mitral A Point Velocity 86.9 cm/s Mitral E to A Ratio 0.9 LV E' Lateral Velocity 5.7 cm/s Mitral E to LV E' Lateral Ratio 14.4 LV E' Septal Velocity 3.7 cm/s Mitral E to LV E' Septal Ratio 22.0 TR Peak Velocity 285.0 cm/s TR Peak Gradient 32.5 mmHg Right Atrial Pressure 10.0 mmHg Pulmonary Artery Systolic Pressu 42.5 mmHg Right Ventricular Systolic Press 42.5 mmHg PV Peak Velocity 44.4 cm/s PV Peak Gradient 0.8 mmHg FINDINGS LEFT VENTRICLE Normal left ventricular size. Mild concentric left ventricular hypertrophy. The left ventricular systolic function is low normal with an estimated ejection fraction in the rang e of 50- 55%. RIGHT VENTRICLE Normal right ventricular size and systolic function. LEFT ATRIUM The left atrial size is normal. RIGHT ATRIUM The right atrial size is normal. ATRIAL SEPTUM No atrial level shunt is demonstrated by color flow Doppler interrogation. AORTA The aortic root and proximal ascending aorta are normal in size on limited imaging. MITRAL VALVE Mild mitral valve regurgitation. AORTIC VALVE Mild aortic valve regurgitation. TRICUSPID VALVE There is mild tricuspid valve regurgitation. The estimated pulmonary arterial pressure is 42.5 mmHg. PULMONARY VALVE No pulmonary valve regurgitation or stenosis. VESSELS The inferior vena cava is normal in size. PERICARDIUM A right sided pleural effusion is present. Nilson Caba MD, FACC (Electronically Signed) Final Date:26 May 2018 15:41
--- NOTE | 2018-05-26 23:19 | ECG ---
Date Performed: 05/25/2018 Time Performed: 23:18:04 PTAGE: 82 years EKG: Sinus rhythm Right bundle branch block Lateral T wave changes are nonspecific Low QRS voltages in precordial lead s Abnormal ECG PREVIOUS TRACING : 05/25/2018 10.21 Compared to previous tracing, previously AFib DOCTOR: Francisco J Richard Interpretating Date/Time 05/26/2018 23:19:14
[2018-05-27 06:54] LABS: Anion Gap 9 meq/L (5-15); Blood Urea Nitrogen 8 mg/dL (7-18); Calcium 8.3 mg/dL (8.5-10.1); Carbon Dioxide 29.6 meq/L (21.0-32.0); Chloride 100 meq/L (98-107); Glomerular Filtration Rate Greater Than 89 mL/min (>89); Glucose,Random 98 mg/dL (74-106); Potassium 3.6 meq/L (3.5-5.1); Sodium 139 meq/L (136-145)
[2018-05-27 08:06] VITALS: BP 106/65; RESP 17; TEMP 99.7
[2018-05-27] MEDS: Furosemide 20 MG Tablet PO SCH (08:31)
[2018-05-27] MEDS: Metoprolol Tartrate 50 MG Tablet PO SCH (08:31)
[2018-05-27] MEDS: Senna/Docusate Sodium 8.6/50 MG Tablet PO SCH (08:33)
--- NOTE | 2018-05-27 08:52 | P.PNIM ---
Subjective Interval history: no sob. dry cough. ambulating eager for dc she wants to hold off on thoracentesis and f/u with pcp and if no better then thoracentesis. Physical Exam Vital signs: Vital Signs 05/26/18 09:00 05/26/18 09:01 05/26/18 10:00 Temperature Pulse Rate 101 H 65 Respiratory Rate Blood Pressure Pulse Oximetry 94 L 05/26/18 11:00 05/26/18 12:00 05/26/18 13:00 Temperature 98 F Pulse Rate 68 73 90 Respiratory Rate 15 Blood Pressure 108/58 L Pulse Oximetry 15 L 05/26/18 14:00 05/26/18 15:00 05/26/18 16:00 Temperature 98.8 F Pulse Rate 101 H 94 H 74 Respiratory Rate 17 Blood Pressure 100/58 L Pulse Oximetry 94 L 05/26/18 16:36 05/26/18 17:00 05/26/18 18:00 Temperature Pulse Rate 82 86 Respiratory Rate Blood Pressure Pulse Oximetry 94 L 05/26/18 19:15 05/26/18 20:40 05/26/18 21:35 Temperature 98.0 F Pulse Rate 82 89 66 Respiratory Rate 20 Blood Pressure 117/61 Pulse Oximetry 95 05/26/18 22:20 05/26/18 23:10 05/27/18 00:12 Temperature 98.6 F Pulse Rate 71 74 83 Respiratory Rate 19 Blood Pressure 109/51 L Pulse Oximetry 94 L 05/27/18 01:20 05/27/18 02:00 05/27/18 03:16 Temperature Pulse Rate 80 79 76 Respiratory Rate Blood Pressure Pulse Oximetry 05/27/18 03:35 05/27/18 04:00 05/27/18 05:18 Temperature 98.4 F Pulse Rate 76 70 69 Respiratory Rate 17 Blood Pressure 113/56 L Pulse Oximetry 93 L 05/27/18 06:27 05/27/18 07:00 05/27/18 08:00 Temperature Pulse Rate 65 69 75 Respiratory Rate 16 Blood Pressure Pulse Oximetry 93 L 05/27/18 08:05 Temperature 99.7 F H Pulse Rate 76 Respiratory Rate 17 Blood Pressure 106/65 Pulse Oximetry 93 L Intake & Output 05/26/18 05/27/18 05/27/18 18:59 06:59 18:59 Intake Total 1200 / 1200 240 / 240 Output Total 800 / 800 Balance 400 / 400 240 / 240 Weight 84.5 kg Intake: Oral 1200 / 1200 240 / 240 Output: Urine 800 / 800 Other: # Voids 2 Date of Last Bowel Movement 05/26/18 05/26/18 heart reg lung diminished bases abd s/nt ext no edema Results - Labs CBC & Chem 7: 05/26/18 03:55 05/27/18 00:53 Laboratory Results - last 24 hr 05/27/18 00:53 Sodium 139 Potassium 3.6 Chloride 100 Carbon Dioxide 29.6 Anion Gap 9 BUN 8 Creatinine 0.61 Estimated GFR Greater than 89 Random Glucose 98 Calcium 8.3 L Assessment and Plan - Assessment (1) Atrial fibrillation with RVR Code(s): I48.91 - Unspecified atrial fibrillation Status: Acute Plan: A. fib RVR new onset afib/rvr. converted to nsr currently ambulated all yesterday and HR currently controlled in sinus no dizziness, cp or sob. has dry cough. tsh nml echo nml LVF. no sig valvular dz or effusion noted. increased bb to metoprolol 50mg bid and tolerating plan for eliquis. long discussion with pt who agrees. she would like to hold off on thoracentesis of small to mod right effusion. small left. will give short course of lasix/kcl and f/u pcp closely in next week. if cough persists or any sob issue then pcp will refer her back for outpt u/s guided thoracentesis. discussed with pcp and pt and everyone in agreement. Bilateral pleural effusions Small pericardial effusion likely secondary to A Fib RVR. LVF nml. Chest X-Ray 05/25/18 10:17 CONCLUSION: Cardiomegaly with small bilateral pleural effusions. Chest CTA 05/25/18 12:26 CONCLUSION: 1. Negative for pulmonary embolus. 2. Bilateral moderate size pleural effusions with compressive atelectasis. Small pericardial effusion. 3. Mild coronary calcifications. cont lasix low dose for few day and reassess next week. hold off thoracentesis now which is pt preference. DVT prophylaxis with SCDs (2) Pleural effusion, bilateral Code(s): J90 - Pleural effusion, not elsewhere classified Status: Acute (3) Pericardial effusion Code(s): I31.3 - Pericardial effusion (noninflammatory) Status: Acute
[2018-05-27 09:30] VITALS: PULSE 85
[2018-05-27 09:52] VITALS: O2SAT 92
== END 2018-05-27 10:48 | disposition home or self-care (01) ==
LOC: NEPE 09:57 → NEDA 16:01 → HCPC 18:50
PROVIDERS: ADMIT Hospitalist; ATTEND Hospitalist